=== PATIENT | male | born 1985 | race Caucasian/White ===

== ENCOUNTER 2018-03-30 12:23 | Emergency (ER) | payer OTHER ==
[2018-03-30] MEDS ORDERED: predniSONE 50 MG TAB PO STA (12:40)
[2018-03-30] MEDS ORDERED: IBUPROFEN 800 MG TAB PO STA (12:40)
[2018-03-30 12:56] VITALS: BP 143/88; PULSE 95; RESP 18; TEMP 98.8
--- NOTE | 2018-03-30 13:07 | ED ---
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 He currently has symptoms on the left side of this times on the right side. States the pain was 8-9/10 severity going down to the right buttock and leg area. He denies any loss of function to his lower extremities no other complaints. Pain hurts with movement and upright position. No other trauma reported no other complaints at this time. No numbness tingling or loss of function - Related Data Home Medications Medication Instructions Recorded Confirmed Atorvastatin [Lipitor] 10 mg PO DAILY 03/30/18 03/30/18 Lisinopril 20 mg PO DAILY 03/30/18 03/30/18 Previous Rx's Medication Instructions Recorded Ibuprofen 800 mg PO Q6HR PRN #20 tablet 03/30/18 methylPREDNISolone Dose Pack 4 mg PO DIRECTED #21 package 03/30/18 [Medrol Dose Pack] Allergies Allergy/AdvReac Type Severity Reaction Status Date / Time No Known Allergies Allergy Verified 03/30/18 12:55 Review of Systems ROS Statement: Those systems with pertinent positive or pertinent negative responses have been documented in the HPI. ROS Other: All systems not noted in ROS Statement are negative. Past Medical History Past Medical History: Hyperlipidemia, Hypertension History of Any Multi-Drug Resistant Organisms: None Reported Past Surgical History: No Surgical Hx Reported Past Psychological History: PTSD Smoking Status: Never smoker Past Alcohol Use History: None Reported Past Drug Use History: None Reported General Exam - General Exam Comments Initial Comments: This is a well-developed well-nourished awake alert oriented 3 male Limitations: no limitations General appearance: alert, in no apparent distress Head exam: Present: atraumatic, normocephalic, normal inspection Eye exam: Present: normal appearance, PERRL, EOMI. Absent: scleral icterus, conjunctival injection, periorbital swelling ENT exam: Present: normal exam, mucous membranes moist Neck exam: Present: normal inspection, full ROM Respiratory exam: Present: normal lung sounds bilaterally. Absent: respiratory distress, wheezes, rales, rhonchi, stridor Cardiovascular Exam: Present: regular rate, normal rhythm, normal heart sounds. Absent: systolic murmur, diastolic murmur, rubs, gallop, clicks GI/Abdominal exam: Absent: tenderness Extremities exam: Present: normal inspection, full ROM, normal capillary refill. Absent: tenderness, pedal edema, joint swelling, calf tenderness Back exam: Present: full ROM, tenderness, paraspinal tenderness. Absent: CVA tenderness (R), CVA tenderness (L), vertebral tenderness (Tenderness palpation of the right lower paraspinous lumbar musculature and SI joint. Mild right gluteal tenderness palpation no step-off or crepitation) Neurological exam: Present: alert, oriented X3, CN II-XII intact, reflexes normal. Absent: motor sensory deficit Psychiatric exam: Present: normal affect, normal mood Skin exam: Present: warm, dry, intact, normal color. Absent: rash Course Vital Signs 03/30/18 12:53 Temperature 98.8 F Pulse Rate 95 Respiratory 18 Rate Blood Pressure 143/88 O2 Sat by Pulse 99 Oximetry Medical Decision Making - Medical Decision Making At this time no further evaluation is indicated no imaging is indicated patient will be placed on anti-inflammatories he does wish to continue working today. We did discuss muscle relaxers to be used when he is not working or operating machinery. He'll follow-up with his doctor if pain persists I did recommend outpatient MRI. Disposition Clinical Impression: Acute lumbar myofascial strain, Sciatica Disposition: HOME SELF-CARE Condition: Good Instructions (If sedation given, give patient instructions): Low Back Strain ( ED), Sciatica (ED), Lower Back Exercises (ED) Prescriptions: Ibuprofen 800 mg PO Q6HR PRN #20 tablet PRN Reason: Pain methylPREDNISolone Dose Pack [Medrol Dose Pack] 4 mg PO DIRECTED #21 package Is patient prescribed a controlled substance at d/c from ED?: No Referrals: Jamal Karimi MD [Primary Care Provider] - 1-2 days
== END 2018-03-30 13:20 | disposition home or self-care (01) ==
LOC: EC 12:23
DX: S39.012A Strain of muscle, fascia and tendon of lower back, initial encounter (principal); M54.41 Lumbago with sciatica, right side; E78.5 Hyperlipidemia, unspecified; I10 Essential (primary) hypertension; Z79.899 Other long term (current) drug therapy; X50.0XXA Overexertion from strenuous movement or load, initial encounter; Y93.F2 Activity, caregiving, lifting; Y92.69 Other specified industrial and construction area as the place of occurrence of the external cause; Y99.0 Civilian activity done for income or pay
CPT/HCPCS: 99283; J7512

== ENCOUNTER → 2018-04-02 | Outpatient (CLI) | payer OTHER ==
--- NOTE | 2018-04-02 16:59 | XR ---
PROCEDURE: XR lumbar spine - 3V DATE AND TIME: 04/02/2018 4:51 PM CLINICAL INDICATION: [facility]; S33.5XXA Sprain of ligaments of lumbar spine TECHNIQUE: Department protocol COMPARISON: None FINDINGS: There is no fracture or malalignment. The soft tissues are unremarkable. Advanced T11-12 degenerative disc changes are noted. IMPRESSION: NO ACUTE PROCESS.
== END | disposition home or self-care (01) ==
LOC: RADXRMAIN 16:34
PROVIDERS: ATTEND Emergency Medicine
DX: S33.5XXA Sprain of ligaments of lumbar spine, initial encounter (principal)
CPT/HCPCS: 72100